=== PATIENT | female | born 1980 ===

== ENCOUNTER 2017-01-29 12:12 | Emergency (ER) | payer OTHER ==
[2017-01-29 13:19] LABS: HEMATOCRIT 34.7 % (34.0-47.0); MEAN CELL VOLUME 88.5 fL (81.0-99.0); MEAN CORPUSCULAR HGB CONC 32.8 g/dL (33.0-37.0); MEAN PLATELET VOLUME 8.2 fL (7.2-11.7); RED CELL DISTRIBUTION WIDTH 14.9 % (11.5-14.5); WHITE BLOOD COUNT 8.2 K/uL (4.8-10.8)
[2017-01-29 13:30] LABS: CHLORIDE 107 mmol/L (98-107); POTASSIUM 3.9 mmol/L (3.6-5.2); SODIUM 137 mmol/L (132-148)
[2017-01-29 13:32] LABS: GFR AFRICAN-AMERICAN > 60
[2017-01-29 13:33] LABS: ALKALINE PHOSPHATASE 171 U/L (38-126); ALT/SGPT 35 U/L (9-52); AST/SGOT 30 U/L (14-36); BILIRUBIN,DIRECT 0.1 mg/dL (0.0-0.4); BILIRUBIN,TOTAL 0.1 mg/dL (0.2-1.3); BLOOD UREA NITROGEN 8 mg/dL (7-17); CALCIUM 8.2 mg/dl (8.6-10.4); CARBON DIOXIDE 20 mmol/L (22-30); GLUCOSE,RANDOM 60 mg/dL (65-105); TOTAL PROTEIN 6.4 g/dL (6.3-8.3)
[2017-01-29 13:34] LABS: RBC URINE 1 /hpf (0-3); URINE BACTERIA RARE (<OCC); URINE BILIRUBIN NEGATIVE (NEGATIVE); URINE BLOOD NEGATIVE (NEGATIVE); URINE COLOR Yellow (YELLOW); URINE GLUCOSE (UA) NORMAL (Normal); URINE KETONE NEGATIVE (NEGATIVE); URINE LEUKOCYTE ESTERASE NEG Leu/uL (Negative); URINE PROTEIN NEGATIVE (NEGATIVE); URINE UROBILINOGEN NORMAL mg/dL (0.2-1.0); WBC URINE 4 /hpf (0-5)
[2017-01-29 13:46] LABS: INR 0.9
--- NOTE | 2017-01-30 14:29 | OBHP ---
Datetime: 01/29/2017 12:35 IP Adm Impression: Term, intrauterine IP Admit Plan: Observation/Evaluation Admit Comment, IP Provider: at 37.6weeks send from clinic as bp was high, no hedache no blurry vision,no ctxs, vb, lof,+fm. obhx 1 x pmh denies med pnv all nkda psh den soch denies bp 144/94 a/p at 37+weeks r/o pih pih labs bp monitoring cont irais and efm cont close observation Pelvic Type - PN: Adequate Extremities - PN: Normal Abdomen - PN: Normal Back - PN: Normal Breast - PN: Normal Lungs - PN: Normal Heart - PN: Normal Thyroid - PN: Normal Neurologic - PN: Normal HEENT - PN: Normal General - PN: Normal FHR - Baseline A Provider: 130 Contraction Comments Provider: occ Comments, ACOG Physical Exam: gravid,non tender ext no edema,no calf ten IP Hx Assessment: The History has been Reviewed and is Current Vital Signs Provider: Reviewed IP Chief Complaint: Signs/Symptoms Gestational HTN NICHD Variability Prov Fetus A: Moderate 6-25bpm Genitourinary Exam: Normal DTRs - PN: Normal
--- NOTE | 2017-01-30 14:30 | OBDCSUM ---
Datetime: 01/29/2017 13:52 Discharged to, Provider: Home Follow up at, Provider: bp check Follow up in weeks, Provider: friday Discharge Comment, Provider: preeclamptic s/s given po hyration labor given Discharge Diagnosis Prov Other: 37weeks bere hernandez
--- NOTE | 2017-01-30 14:30 | OBHP ---
Datetime: 01/29/2017 13:51 Admit Comment, IP Provider: pt was seen at bed side. feels ok. bp normal pih neg ve closed plan dc home f/u on friday for bp check preeclamptic s/s given Dr Salas bauer
[2017-01-31 10:48] VITALS: BMI 31.0
[2017-01-31] MEDS ORDERED: Lactated Ringer's 1,000 ML IV SCH (11:00)
== END 2017-01-29 14:05 | disposition home or self-care (01) ==
LOC: C.EROB 12:12
DX: O13.3 Gestational [pregnancy-induced] hypertension without significant proteinuria, third trimester (principal); Z3A.37 37 weeks gestation of pregnancy

== ENCOUNTER 2017-01-31 07:50 | Inpatient (IN) | payer MEDICAID, OTHER ==
[2017-01-29 12:15] VITALS: BMI 36.2
[2017-01-31] MEDS ORDERED: Lactated Ringer's 1,000 ML IV SCH (08:40)
--- NOTE | 2017-01-31 08:40 | OBHP ---
Datetime: 01/31/2017 08:37 IP Adm Impression: Term, intrauterine ; Active labor; Intact Membranes IP Admit Plan: Admit to unit; Initiate labor protocol Admit Comment, IP Provider: at 38weeks came with ctxs started in am , 610, irrg, no vb, lof,=f m. no hedache or blurrry viio. obhx 1 x pmh denies med pnv all nkda psh de soch den ve 70/-2 bp 140/95 a/p at 38weeks in labor/pih admit to l_d npo/ivf labs cont irais and efm pain management anticipate Pelvic Type - PN: Adequate Extremities - PN: Normal Abdomen - PN: Normal Back - PN: Normal Breast - PN: Normal Lungs - PN: Normal Heart - PN: Normal Thyroid - PN: Normal Neurologic - PN: Normal HEENT - PN: Normal General - PN: Normal FHR - Baseline A Provider: 130 Contraction Comments Provider: q1-4 Comments, ACOG Physical Exam: gravid,non tendeer ext no edema,no calf ten ve /70/-2 reflex 2 + IP Hx Assessment: The History has been Reviewed and is Current EGA AdmitDate IP: 38.0 Vital Signs Provider: Reviewed; Within Normal Limits IP Indication for Induction: Gest. HTN/PreEclampsia/Eclampsia IP Chief Complaint: Uterine contractions; Signs/Symptoms Gestational HTN NICHD Variability Prov Fetus A: Moderate 6-25bpm NICHD Accel Fetus A IP Provider: 15X15 FHR Category Provider Fetus A: Category I Dilatation, Provider: 4 Effacement, Provider: 70 Station, Provider: -2 Genitourinary Exam: Normal DTRs - PN: Normal
[2017-01-31] MEDS ORDERED: Oxytocin 30 UNIT 500 ML IV PRN (08:43)
--- NOTE | 2017-01-31 08:43 | OBADHP ---
Datetime: 01/31/2017 08:37 Admit Comment, IP Provider: at 38weeks came with ctxs started in am , 6/10, irrg, no vb, lof,=f m. no hedache or blurrry viio. obhx 1 x pmh denies med pnv all nkda psh de soch den ve 70/-2 bp 140/95 a/p at 38weeks in labor/pih admit to l_d npo/ivf labs cont irais and efm pain management anticipate Pelvic Type - PN: Adequate Extremities - PN: Normal Abdomen - PN: Normal Back - PN: Normal Breast - PN: Normal Lungs - PN: Normal Heart - PN: Normal Thyroid - PN: Normal Neurologic - PN: Normal HEENT - PN: Normal General - PN: Normal FHR - Baseline A Provider: 130 Contraction Comments Provider: q1-4 Comments, ACOG Physical Exam: gravid,non tendeer ext no edema,no calf ten ve 70/-2 reflex 2 + IP Hx Assessment: The History has been Reviewed and is Current Vital Signs Provider: Reviewed; Within Normal Limits IP Chief Complaint: Uterine contractions; Signs/Symptoms Gestational HTN NICHD Variability Prov Fetus A: Moderate 6-25bpm NICHD Accel Fetus A IP Provider: 15X15 FHR Category Provider Fetus A: Category I Dilatation, Provider: 4 Effacement, Provider: 70 Station, Provider: -2 Genitourinary Exam: Normal DTRs - PN: Normal EGA AdmitDate IP: 38.0 IP Adm Impression: Term, intrauterine ; Active labor; Intact Membranes IP Admit Plan: Admit to unit; Initiate labor protocol
[2017-01-31 09:11] LABS: BASO # 0.1 K/uL (0.0-0.2); BASO % 0.5 % (0.0-2.0); EOS # 0.1 K/uL (0.0-0.7); EOS % 0.7 % (0.0-4.0); HEMATOCRIT 35.9 % (34.0-47.0); LYMPH # 1.8 K/uL (1.0-4.3); LYMPH % 15.9 % (20.0-40.0); MEAN CELL VOLUME 88.2 fL (81.0-99.0); MEAN CORPUSCULAR HEMOGLOBIN 28.9 pg (27.0-31.0); MEAN CORPUSCULAR HGB CONC 32.8 g/dL (33.0-37.0); MEAN PLATELET VOLUME 8.2 fL (7.2-11.7); MONO # 0.5 K/uL (0.0-0.8); MONO % 4.1 % (0.0-10.0); RED CELL DISTRIBUTION WIDTH 14.7 % (11.5-14.5); WHITE BLOOD COUNT 11.3 K/uL (4.8-10.8)
[2017-01-31] MEDS ORDERED: Oxytocin 30 UNIT 500 ML IV ONE (09:12)
[2017-01-31 09:17] LABS: RBC URINE 19 /hpf (0-3); URINE BILIRUBIN NEGATIVE (NEGATIVE); URINE BLOOD 2+ (NEGATIVE); URINE COLOR Yellow (YELLOW); URINE GLUCOSE (UA) NORMAL (Normal); URINE KETONE NEGATIVE (NEGATIVE); URINE LEUKOCYTE ESTERASE TRACE Leu/uL (Negative); URINE PROTEIN NEGATIVE (NEGATIVE); URINE UROBILINOGEN NORMAL mg/dL (0.2-1.0); WBC URINE 5 /hpf (0-5)
[2017-01-31 09:26] LABS: CHLORIDE 106 mmol/L (98-107); SODIUM 137 mmol/L (132-148)
[2017-01-31 09:27] LABS: POTASSIUM 3.8 mmol/L (3.6-5.2)
[2017-01-31 09:29] LABS: ALKALINE PHOSPHATASE 185 U/L (38-126); ALT/SGPT 31 U/L (9-52); AST/SGOT 29 U/L (14-36); BILIRUBIN,TOTAL 0.2 mg/dL (0.2-1.3); BLOOD UREA NITROGEN 7 mg/dL (7-17); CARBON DIOXIDE 19 mmol/L (22-30); GFR AFRICAN-AMERICAN > 60; GLUCOSE,RANDOM 70 mg/dL (65-105); TOTAL PROTEIN 6.7 g/dL (6.3-8.3)
[2017-01-31 09:30] LABS: CALCIUM 8.3 mg/dl (8.6-10.4); URIC ACID 3.1 mg/dL (2.2-7.5)
[2017-01-31 09:34] LABS: INR 0.9
[2017-01-31] MEDS ORDERED: Bupivacaine 0.125%/FentaNYL 200 ML EPI ONE (09:42)
--- NOTE | 2017-01-31 10:00 | OBPN ---
Datetime: 01/31/2017 09:58 IP Progress Impression: Normal progression of labor IP Procedures: Artificial ROM; Sterile Vag Exam IP Progress Plan: Continue present management Contraction Comments Provider: irrg FHR - Baseline A Provider: 130 IP Progress Note Comment: pt was examined at bed side ve 4-5/70/-2 arom clear start pitocin anticipate Vital Signs Provider: Reviewed; Within Normal Limits NICHD Accel Fetus A IP Provider: 15X15 FHR Category Provider Fetus A: Category I NICHD Variability Prov Fetus A: Moderate 6-25bpm Dilatation, Provider: 5 Effacement, Provider: 70 Station, Provider: -2
[2017-01-31] MEDS ORDERED: Lidocaine 2% Inj (20ml) ONE (12:01)
[2017-01-31] MEDS ORDERED: Oxycodone/Acetaminophen 5/325 mg Tab PO PRN (12:13)
[2017-01-31] MEDS ORDERED: Oxytocin 30 UNIT 1,000 ML IV SCH (12:15)
[2017-02-01 07:52] LABS: HEMATOCRIT 33.4 % (34.0-47.0); MEAN CELL VOLUME 89.1 fL (81.0-99.0); MEAN CORPUSCULAR HEMOGLOBIN 29.5 pg (27.0-31.0); MEAN CORPUSCULAR HGB CONC 33.2 g/dL (33.0-37.0); MEAN PLATELET VOLUME 8.1 fL (7.2-11.7); RED CELL DISTRIBUTION WIDTH 14.9 % (11.5-14.5); WHITE BLOOD COUNT 13.5 K/uL (4.8-10.8)
[2017-02-01 08:06] VITALS: RESP 18
--- NOTE | 2017-02-01 08:40 | OBDS ---
[employer]IV[facility] [employer]ERSONN[employer] Delivery Doctor: Thomas Marina MD Director Of Occupational Therapy: Carrie Soto RN Anesthesiologist: MATERNAL INFORMATION Delivery Anesthesia: Epidural Medications in Delivery: Pitocin 30 units IV;Lidocaine 2% locally Estimated Blood Loss (ml): 350 Placenta Cultured: No Maternal Complications: None RN Comments: Liveborn Baby Boy. 9-9 Provider Comments: Uncomplicated spontaneous Vaginal delivery of a viable male infant with birthweig ht of 7Ibs 2 oz and APGARS scores of 9 and 9. LABOR SUMMARY EDC: 02/14/2017 00:00 No. Babies in Womb: 1 Attempted: No Labor Anesthesia: Epidural LABOR INFORMATION Reason for Induction: Not Applicable Onset of Labor: 01/31/2017 06:00 Complete Dilatation: 01/31/2017 11:20 Oxytocin: Augmentation Group B Beta Strep: Negative (Annotations: 01/15/17) Antibiotics # of Doses: 0 Antibiotics Time of Last Dose: 0 Steroids Given: None Reason Steroids Not Administered: Not Applicable MEMBRANES Membranes Rupture Method: Artificial Rupture of Membranes: 01/31/2017 09:57 Length of Rupture (hrs): 1.98 Amniotic Fluid Color: Clear Amniotic Fluid Amount: Small Amniotic Fluid Odor: Normal STAGES OF LABOR Stage 1 hrs: 5 Stage 1 min: 20 Stage 2 hrs: 0 Stage 2 min: 36 Stage 3 hrs: 0 Stage 3 min: 5 Total Time in Labor hrs: 6 Total Time in Labor min: 1 VAGINAL DELIVERY Episiotomy: None Laceration Extension: Second Degree Laceration Type: Perineal Laceration Repair: Yes Initial Vag Sponge Count: 10 Final Vag Sponge Count: 10 Initial Vag Sharps Count: 3 Final Vag Sharps Count: 3 Sponge Count Correct: Yes; Vaginal Sweep Performed Sharps Count Correct: Yes Count Comment: 2 needles; 1 suture needle BABY A INFORMATION Delivery Date/Time: 01/31/2017 11:56 Method of Delivery: Vaginal Born in Route : No : N/A Forceps: N/A Vacuum Extraction: N/A Shoulder Dystocia : No SHOULDER DYSTOCIA BABY A Delivery Date/Time: 01/31/2017 11:56 PRESENTATION/POSITION BABY A Presentation: Cephalic Cephalic Presentation: Vertex Vertex Position: Right Occipital Anterior Breech Presentation: N/A PLACENTA INFORMATION BABY A Placenta Delivery Time : 01/31/2017 12:01 Placenta Method of Delivery: Spontaneous Placenta Status: Delivered SCORES BABY A Heart Rate 1 min: >100 bpm Resp Effort 1 min: Good Cry Reflex Irritability 1 min: Cough or Sneeze or Pulls Away Muscle Tone 1 min: Active Motion Color 1 min: Body [place], Extremities Blue Resuscitation Effort 1 min: N/A SCORE 1 MIN: 9 Heart Rate 5 min: >100 bpm Resp Effort 5 min: Good Cry Reflex Irritability 5 min: Cough or Sneeze or Pulls Away Muscle Tone 5 min: Active Motion Color 5 min: Body [place], Extremities Blue Resuscitation Effort 5 min: N/A SCORE 5 MIN: 9 INFORMATION BABY A Gestational Age at Delivery: 38.0 Gestational Status: Term Outcome : Liveborn Infant Condition : Stable Sex: Male IDENTIFICATION/MEDS BABY A ID Band Number: [id number] ID Band Location: Left Leg; Left Arm Sensor Applied: Yes Sensor Number: [id number] Sensor Location : Cord Clamp Vitamin K Given : Not Given Erythromycin Given: Not Given WEIGHT/LENGTH BABY A Infant Birthweight (gms): 3235 Infant Weight (lb): 7 Infant Weight (oz): 2 Length Inches: 19.50 Length cms: 49.5 CORD INFORMATION BABY A No. Cord Vessels: 3 Nuchal Cord : N/A Cord Blood Taken: Yes Infant Suction: Mouth; Nose ASSESSMENT BABY A Complications: None Physical Findings at Delivery: Within Normal Limits Infant Respirations: Appears Normal Building Admin/ALS Called : No Care By: Transferred To: [facility]
--- NOTE | 2017-02-01 08:44 | OBPPN ---
Datetime: 02/01/2017 08:41 PP Pain Prov: Within normal limits PP Nausea Prov: Denies PP Flatus Prov: Yes PP Breasts Prov: Normal PP Heart Prov: Normal PP Lungs Prov: Normal PP Abdomen/Uterus Prov: Normal PP Lochia Prov: Normal PP Vulva/Perineum Prov: Normal PP CVA Tenderness Prov: Normal PP Extremities Prov: Normal PP Progress Prov: Normal PP Comments Phys Exam Prov: Abd: Soft, NT, BS- present. UT- Firm PP Impression Prov: Normal progression PP Progress Note Prov: S/P , CLinically Stable. Plan: COntinue care.
[2017-02-02 08:02] VITALS: BP 124/82; PULSE 87; TEMP 97.1; O2SAT 97
--- NOTE | 2017-02-02 08:16 | OBPPN ---
Datetime: 02/02/2017 08:12 PP Pain Prov: Within normal limits PP Nausea Prov: Denies PP Flatus Prov: Yes PP Breasts Prov: Normal PP Heart Prov: Normal PP Lungs Prov: Normal PP Abdomen/Uterus Prov: Normal PP Lochia Prov: Normal PP Vulva/Perineum Prov: Normal PP CVA Tenderness Prov: Normal PP Extremities Prov: Normal PP Progress Prov: Normal PP Comments Phys Exam Prov: Abd: Soft,NT, BS- present UT- Firm PP Impression Prov: Normal progression PP Plan Prov: Discharge PP Progress Note Prov: S/P , Clinically Stable. Plan: D/C Home Vital Signs Provider PP: Reviewed
--- NOTE | 2017-02-02 08:18 | OBDCSUM ---
Datetime: 02/02/2017 08:14 Discharged to, Provider: Home Follow up at, Provider: Dr Lozano Disch Instr Activity: Normal activity Disch Instr Diet: Regular Discharge Instructions, Provider: Routine instructions given Discharge Diagnosis, Provider: Term Delivered Discharge Time: 02/02/2017 08:14 Follow up in weeks, Provider: 6 weeks Disch Referrals: None Contraception discussed, Prov: Yes Discharge Comment, Provider: S/P Uncomplicated , Clinically Stable Discharge Diagnosis Prov Other: S/P Uncomplicated , Clinically Stable Contraception after Delivery: Undecided
== END 2017-02-02 11:50 | disposition home or self-care (01) | DRG 775 ==
LOC: C.EROB 07:50 → C.4D 08:20 → C.4M 13:30
PROVIDERS: ADMIT Obstetrics & Gynecology; ATTEND Obstetrics & Gynecology
PROC: 10E0XZZ Delivery of Products of Conception, External Approach (ICD-10-PCS; principal; 2017-01-31)
PROC: 0KQM0ZZ Repair Perineum Muscle, Open Approach (ICD-10-PCS; 2017-01-31)
PROC: 10907ZC Drainage of Amniotic Fluid, Therapeutic from Products of Conception, Via Natural or Artificial Opening (ICD-10-PCS; 2017-01-31)
DX: O13.4 Gestational [pregnancy-induced] hypertension without significant proteinuria, complicating childbirth (principal); O70.1 Second degree perineal laceration during delivery; Z37.0 Single live birth; Z3A.38 38 weeks gestation of pregnancy